=== PATIENT | female | born 1975 | race Caucasian/White ===

== ENCOUNTER → 2017-09-07 | Outpatient (CLI) | payer OTHER ==
--- NOTE | 2017-09-07 12:45 | US ---
EXAMINATION TYPE: US thyroid st tissue head/neck DATE OF EXAM: 09/07/2017 COMPARISON: NONE CLINICAL HISTORY: R59.0 ENLARGED LYMPH NODES. finished antibiotics for right neck swelling, normal th yroid labs GLAND SIZE: Right Lobe: 4.5 x 1.7 x 1.5 cm Overall Parenchyma: homogenous with slight hypervascularity Left Lobe: 4.9 x 1.5 x 1.5 cm Overall Parenchyma: homogeneous with slight hypervascularity Isthmus Thickness: 0.3 cm NODULES RIGHT: # of nodules measured on right: 0 LEFT: # of nodules measured on left: 0 ISTHMUS: # of nodules measured in the isthmus: 0 Bilateral neck scanned, no evidence of lymphadenopathy. Largest lymph node on the right lateral neck = 1.5 x 1.0 x 0.3cm. IMPRESSION: Slight hypervascularity of the thyroid gland may relate to thyroiditis. No discrete thyroid nodule. N o local adenopathy.
== END | disposition home or self-care (01) ==
LOC: RADUSWWP 09:57
PROVIDERS: ATTEND Family Medicine
DX: R59.0 Localized enlarged lymph nodes (principal)
CPT/HCPCS: 76536

== ENCOUNTER → 2021-04-12 | Outpatient (CLI) | payer OTHER ==
--- NOTE | 2021-04-13 09:14 | MM ---
Reason for exam: screening (asymptomatic). Last mammogram was performed 7 years and 2 months ago. History: Patient had first child at age 38. Family history of breast cancer in 2 maternal cousins at age 30. Physical Findings: A clinical breast exam by your physician is recommended on an annual basis and results should be correlated with mammographic findings. MG 3D Screening Mammo W/Cad Bilateral CC and MLO view(s) were taken. Prior study comparison: January 30, 2014, bilateral MG screening mammo w CAD. The breast tissue is heterogeneously dense. This may lower the sensitivity of mammography. There is no discrete abnormality. No significant changes when compared with prior studies. ASSESSMENT: Negative, BI-RAD 1 RECOMMENDATION: Routine screening mammogram of both breasts in 1 year.
== END | disposition home or self-care (01) ==
LOC: RADMAMWWP 07:17
PROVIDERS: ATTEND Obstetrics & Gynecology
DX: Z12.31 Encounter for screening mammogram for malignant neoplasm of breast (principal); Z80.3 Family history of malignant neoplasm of breast
CPT/HCPCS: 77063; 77067

== ENCOUNTER → 2023-05-21 | Outpatient (CLI) | payer OTHER ==
--- NOTE | 2023-05-21 18:19 | US ---
EXAMINATION TYPE: US thyroid st tissue head/neck DATE OF EXAM: 05/21/2023 COMPARISON: 09/07/2017 CLINICAL INDICATION: Female, 48 years old with history of I88.9 NONSPECIFIC LYMPHADENITIS, UNSPECIFIE D; f/u Hx swollen glands, lymphadenopathy GLAND SIZE: Right Lobe: 5.2x1.7x2.0 cm Overall Parenchyma: homogeneous Left Lobe: 5.1x1.9x1.9 cm Overall Parenchyma: homogeneous Isthmus Thickness: 0.35 cm NODULES RIGHT: # of nodules measured on right: 1 1. 0.3 X 0.2 x 0.4 cm, mid mid, new from prior. TIRADS Score: 4 TIRADS Category 4: Composition: Solid or almost completely solid (2 points). Echogenicity: Hypoechoic (2 points). Shape: Wider than tall (0 points). Margin: Smooth (0 points). Echogenic foci: None or large comet-tail artifacts (0 points) Recommendation: If >1.5cm: FNA; If >1cm: Follow up at 1,2, 3,5 years LEFT: # of nodules measured on left: 0 Bilateral neck scanned, no evidence of lymphadenopathy. IMPRESSION: Right thyroid nodule image criteria for follow-up.
--- NOTE | 2023-05-22 10:12 | MM ---
Reason for Exam: Screening (asymptomatic). Last mammogram was performed 1 year(s) and 1 month(s) ago. Patient History: Menarche at age 17. First Full-Term at age 38. Late child-bearing (after 30). Premenopausal. Patient has history of breast feeding. Maternal cousin had breast cancer, age 30. Maternal cousin had breast cancer, age 30. Paternal aunt had ovarian cancer, age 55. Risk Values: Precious 5 year model risk: 1.1%. NCI Lifetime model risk: 11.6%. Prior Study Comparison: 01/30/2014 Bilateral Screening Mammogram, [facility]. 04/12/2021 Bilateral Screening Mammogram, [facility]. 04/20/2022 Bilateral MG 3D screening mammo w/cad, [facility]. Tissue Density: There are scattered areas of fibroglandular density. Findings: Analyzed By CAD. Right breast: There is no suspicious group of microcalcifications or new suspicious mass. Left breast: There is no suspicious group of microcalcifications or new suspicious mass. Overall Assessment: Negative, BI-RAD 1 Management: Screening Mammogram of both breasts in [address] [facility] will attempt to contact patient to return for supplemental views and ultrasound if indicated. Patient should continue monthly self-breast exams. A clinical breast exam by your physician is recommended on an annual basis. This exam should not preclude additional follow-up of suspicious palpable abnormalities. Note on Precious scores and lifetime risk: 1. A Precious score greater than 3% is considered moderate risk. If this is the case, consider specialist referral to assess eligibility for a risk reducing agent. 2. If overall lifetime risk for the development of breast cancer is 20% or higher, the patient may qualify for future screening with alternating mammogram and breast MRI. Electronically signed and approved by: Edis Veronica DO
== END | disposition home or self-care (01) ==
LOC: RADUSWWP 15:59
PROVIDERS: ATTEND Family Medicine
DX: Z12.31 Encounter for screening mammogram for malignant neoplasm of breast (principal); E04.1 Nontoxic single thyroid nodule; I88.9 Nonspecific lymphadenitis, unspecified
CPT/HCPCS: 76536; 77063; 77067

== ENCOUNTER → 2024-08-28 | Outpatient (CLI) | payer OTHER ==
--- NOTE | 2024-08-28 09:12 | MM ---
Reason for Exam: Screening (asymptomatic). Last mammogram was performed 1 year(s) and 3 month(s) ago. Patient History: Menarche at age 17. First Full-Term at age 38. Late child-bearing (after 30). Premenopausal. Patient has history of breast feeding. Maternal cousin had breast cancer, age 30. Maternal cousin had breast cancer, age 30. Paternal aunt had ovarian cancer, age 55. Last menstrual period: 08/13/2024 Risk Values: Precious 5 year model risk: 1.1%. NCI Lifetime model risk: 11.4%. Prior Study Comparison: 04/12/2021 Bilateral Screening Mammogram, [facility]. 04/20/2022 Bilateral MG 3D screening mammo w/cad, [facility]. 05/21/2023 Bilateral MG 3D screening mammo w/cad, [facility]. Tissue Density: The breasts are heterogeneously dense, which may obscure small masses. Findings: Analyzed By CAD. There is no suspicious group of microcalcifications or new suspicious mass in either breast. Overall Assessment: Benign, BI-RAD 2 Management: Screening Mammogram of both breasts in 1 year. . Patient should continue monthly self-breast exams. A clinical breast exam by your physician is recommended on an annual basis. This exam should not preclude additional follow-up of suspicious palpable abnormalities. Note on Precious scores and lifetime risk: 1. A Precious score greater than 3% is considered moderate risk. If this is the case, consider specialist referral to assess eligibility for a risk reducing agent. 2. If overall lifetime risk for the development of breast cancer is 20% or higher, the patient may qualify for future screening with alternating mammogram and breast MRI. [facility], , 08/28/2024 9:09 AM. Electronically signed and approved by: Sherwin Hale M.D. Radiologis
--- NOTE | 2024-08-28 09:46 | US ---
EXAMINATION TYPE: US thyroid st tissue head/neck DATE OF EXAM: 08/28/2024 COMPARISON: US 05/21/2023 CLINICAL INDICATION: Female, 49 years old with history of E04.1 NONTOXIC SINGLE THYROID NOD; Follow up of thyroid nodule TECHNIQUE: Grayscale and color Doppler imaging of the thyroid gland. FINDINGS: GLAND SIZE: Right Lobe: 4.8 x 1.5 x 1.8 cm Overall Parenchyma: homogeneous Left Lobe: 5.0 x 1.9 x 1.8 cm Overall Parenchyma: homogeneous Isthmus Thickness: 0.3 cm NODULES RIGHT: # of nodules measured on right: 1 1. 0.4 X 0.3 x 0.4 cm, mid mid, Prior size: 0.3 x 0.2 x 0.4 cm TIRADS Score: 0 TIRADS Category 1: Benign Composition: Cystic or almost completely cystic (0 points). Recommendation: No FNA Previously this is more solid in appearance now cystic. LEFT: # of nodules measured on left: 0 ISTHMUS: # of nodules measured in the isthmus: 0 Bilateral neck scanned, no evidence of lymphadenopathy. IMPRESSION: No suspicious thyroid nodules. No follow-up recommended. TI-RADS assessment score and recommendation for follow-up based on appropriate scoring and treatment protocols. TR1 Benign No FNA TR2 Not suspicious No FNA TR3: If nodule size is ? 2.5 cm, FNA is recommended. If nodule size is ? 1.5 cm, follow-up imaging at 1, 3, and 5 years is recommended. TR4: If nodule size is ? 1.5 cm, FNA is recommended. If nodule size is ? 1.0 cm, follow-up imaging at 1, 2, 3, and 5 years is recommended. TR5: If nodule size is ? 1.0 cm, FNA is recommended. If nodule size is ? 0.5 cm, annual follow-up for up to 5 years is recommended. TR 1 thyroid nodules have a 0.3 % risk of malignancy. TR 2 thyroid nodules have a 1.5 % risk of malignancy. TR 3 thyroid nodules have a 4.8 % risk of malignancy. TR 4 thyroid nodules have a 9.1 % risk of malignancy. TR 5 thyroid nodules have a 35 % risk of malignancy. [email or web address] [facility], , 08/28/2024 9:44 AM
== END | disposition home or self-care (01) ==
LOC: RADMAMWWP 08:43
PROVIDERS: ATTEND Family Medicine
DX: Z12.31 Encounter for screening mammogram for malignant neoplasm of breast (principal); R92.333 Mammographic heterogeneous density, bilateral breasts; E04.1 Nontoxic single thyroid nodule; Z80.3 Family history of malignant neoplasm of breast
CPT/HCPCS: 76536; 77063; 77067